=== PATIENT | female | born 1960 | race Caucasian/White ===

== ENCOUNTER → 2024-05-19 14:20 | Outpatient (REF) | payer OTHER, SELFPAY | LOC: WDC 14:20 | PROVIDERS: ATTENDING PHYSICIAN Nurse Practitioner Family; FAMILY PHYSICIAN Nurse Practitioner Primary Care | DX: Z12.31 Encounter for screening mammogram for malignant neoplasm of breast (principal) | CPT/HCPCS: 77063; 77067 ==

== ENCOUNTER 2024-12-16 06:12 | Day surgery (SDC) | payer OTHER, SELFPAY ==
[2024-12-04 13:59] LABS: Hematocrit 40.8 % (37.0-47.0); Hemoglobin 13.6 g/dL (12.0-16.0); Mean Corp Hgb Conc. 33.3 g/dL (33.0-37.0); Mean Corpuscular Hgb 30.5 pg (27.0-31.0); Mean Corpuscular Volume 91.5 fL (81.0-99.0); Platelet Count 256 10^3/uL (130-400); Red Blood Cell Count 4.46 10^6/uL (4.20-5.40); Red Cell Dist. Width 12.9 % (11.5-14.5); White Blood Cell Count 9.4 10^3/uL (4.8-10.8)
[2024-12-04 14:39] VITALS: BMI 33.3
[2024-12-16 10:14] VITALS: BP 111/64
[2024-12-16 10:19] VITALS: BMI 33.3
[2024-12-16] MEDS: NORMOSOL-R/PLASMALYTE-A 1000 IV (10:28)
[2024-12-16] MEDS: CELEBREX 200 MG PO (10:32)
[2024-12-16] MEDS: TYLENOL 1000 MG PO (10:32)
[2024-12-16 12:15] VITALS: BP 93/71
[2024-12-16 12:30] VITALS: BP 105/60
[2024-12-16 12:45] VITALS: BP 111/67
== END 2024-12-16 13:15 | disposition home or self-care (01) ==
LOC: SDS 06:12
PROVIDERS: ATTENDING PHYSICIAN Orthopaedic Surgery Hand Surgery; FAMILY PHYSICIAN Nurse Practitioner Primary Care; OTHER PHYSICIAN Internal Medicine Cardiovascular Disease
PROC: 01N50ZZ Release Median Nerve, Open Approach (ICD-10-PCS; 2024-12-16)
DX: G56.01 Carpal tunnel syndrome, right upper limb (principal)
CPT/HCPCS: 64721; 36415; 85027; 93005

== ENCOUNTER 2024-12-30 05:56 | Day surgery (SDC) | payer OTHER, SELFPAY ==
[2024-12-30 06:25] VITALS: BP 112/71
[2024-12-30] MEDS: CELEBREX 200 MG PO (06:46)
[2024-12-30] MEDS: TYLENOL 1000 MG PO (06:46)
[2024-12-30] MEDS: NORMOSOL-R/PLASMALYTE-A 1000 IV (06:46)
[2024-12-30 06:53] VITALS: BMI 33.3
[2024-12-30 07:31] VITALS: BP 109/55
[2024-12-30 07:45] VITALS: BP 74/64
[2024-12-30 07:47] VITALS: BP 107/82
[2024-12-30 08:00] VITALS: BP 115/79
[2024-12-30 08:27] VITALS: BP 115/75
== END 2024-12-30 08:27 | disposition home or self-care (01) ==
LOC: SDS 05:56
PROVIDERS: ATTENDING PHYSICIAN Orthopaedic Surgery Hand Surgery
PROC: 01N50ZZ Release Median Nerve, Open Approach (ICD-10-PCS; 2024-12-30)
DX: G56.02 Carpal tunnel syndrome, left upper limb (principal)
CPT/HCPCS: 64721

== ENCOUNTER 2025-01-25 12:37 | Outpatient (RCR) | payer OTHER, SELFPAY | END 2025-01-25 23:59 | disposition home or self-care (01) | LOC: ROT 12:37 | PROVIDERS: ATTENDING PHYSICIAN Physician Assistant Surgical; FAMILY PHYSICIAN Internal Medicine Geriatric Medicine | DX: Z47.89 Encounter for other orthopedic aftercare (principal); G56.03 Carpal tunnel syndrome, bilateral upper limbs; Z73.6 Limitation of activities due to disability | CPT/HCPCS: 97018; 97166; 97535 ==

== ENCOUNTER 2025-02-15 14:09 | Outpatient (RCR) | payer OTHER, SELFPAY | END 2025-02-17 11:36 | disposition home or self-care (01) | LOC: ROT 14:09 | PROVIDERS: ATTENDING PHYSICIAN Physician Assistant Surgical; FAMILY PHYSICIAN Internal Medicine Geriatric Medicine | DX: Z47.89 Encounter for other orthopedic aftercare (principal); G56.03 Carpal tunnel syndrome, bilateral upper limbs; Z73.6 Limitation of activities due to disability | CPT/HCPCS: 97018; 97110; 97140 ==

== ENCOUNTER → 2025-03-09 11:04 | Outpatient (REF) | payer OTHER, SELFPAY | LOC: DHSLP 11:04 | PROVIDERS: ATTENDING PHYSICIAN Internal Medicine; FAMILY PHYSICIAN Nurse Practitioner Primary Care | DX: G47.61 Periodic limb movement disorder (principal); G47.00 Insomnia, unspecified; G47.8 Other sleep disorders; R06.83 Snoring | CPT/HCPCS: 95810 ==

== ENCOUNTER → 2025-05-24 12:13 | Outpatient (REF) | payer OTHER, SELFPAY | LOC: WDC 12:13 | PROVIDERS: ATTENDING PHYSICIAN Nurse Practitioner Adult Health; FAMILY PHYSICIAN Nurse Practitioner Primary Care | DX: Z12.31 Encounter for screening mammogram for malignant neoplasm of breast (principal) | CPT/HCPCS: 77062; 77066 ==

== ENCOUNTER → 2025-08-23 12:06 | Outpatient (REF) | payer OTHER, SELFPAY | LOC: RAD 12:06 | PROVIDERS: ATTENDING PHYSICIAN Nurse Practitioner Primary Care | DX: K21.9 Gastro-esophageal reflux disease without esophagitis (principal); K44.9 Diaphragmatic hernia without obstruction or gangrene; R10.31 Right lower quadrant pain | CPT/HCPCS: 74177; Q9967 ==

== ENCOUNTER → 2025-08-26 09:36 | Outpatient (REF) | payer OTHER, SELFPAY | LOC: RAD 09:36 | PROVIDERS: ATTENDING PHYSICIAN Internal Medicine; FAMILY PHYSICIAN Nurse Practitioner Primary Care | DX: K59.02 Outlet dysfunction constipation (principal) | CPT/HCPCS: 74270 ==

== ENCOUNTER 2025-11-02 16:57 | Outpatient (RCR) | payer MEDICARE, OTHER, SELFPAY | END 2025-11-02 23:59 | disposition home or self-care (01) | LOC: RPT 16:57 | PROVIDERS: ATTENDING PHYSICIAN Internal Medicine; FAMILY PHYSICIAN Nurse Practitioner Primary Care | DX: K59.02 Outlet dysfunction constipation (principal); N81.6 Rectocele; Z73.6 Limitation of activities due to disability; M62.81 Muscle weakness (generalized); R39.15 Urgency of urination | CPT/HCPCS: 97140; 97163; 97530 ==